=== PATIENT | male | born 1990 | race African-American/Black ===

== ENCOUNTER 2021-03-27 16:17 | Emergency (ER) | payer OTHER ==
[~2021-03-27] VITALS: Ht 170.2 cm; Wt 100.0 kg
[2021-03-27 16:22] VITALS: BP 143/67
--- NOTE | 2021-03-27 17:22 | PHYS DOC ---
Past Medical History Additional Past Medical Histor: SI Past Surgical History: Other Additional Past Surgical Histo: Finger amputation Smoking Status: Never Smoker Alcohol Use: None General Adult EDM: Chief Complaint: SUICDAL IDEATION HPI: HPI: Patient is a 30 year old inmate male from a local correctional facility presented to the ED today to be evaluated after swallowing a razor blade. Patient states he did this as a suicide attempt. He states currently has slight epigastric pain. He states after swallowing the blade he was tackled by correctional facility officers. He states he has a contusion on the forehead and bruising on the left wrist. Patient denies any loss of consciousness during the tackle. Patient is guarded with 2 correctional officers Review of Systems: Review of Systems: Constitutional: Denies fever or chills. [] Eyes: Denies change in visual acuity. [] HENT: Denies nasal congestion or sore throat. [] Respiratory: Reports swallowing a razor blade, denies denies cough or shortness of breath. [] Cardiovascular: Denies chest pain or edema. [] GI: Denies abdominal pain, nausea, vomiting, bloody stools or diarrhea. [] : Denies dysuria. [] Musculoskeletal: Denies back pain or joint pain. [] Integument: Reports left wrist bruising Neurologic: Reports forehead contusion. Denies headache, focal weakness or sensory changes. [] Psychiatric: Denies depression or anxiety. [] Heart Score: C/O Chest Pain: N/A Risk Factors: Risk Factors: DM, Current or recent (<one month) smoker, HTN, HLP, family history of CAD, obesity. Risk Scores: Score 0 - 3: 2.5% MACE over next 6 weeks - Discharge Home Score 4 - 6: 20.3% MACE over next 6 weeks - Admit for Clinical Observation Score 7 - 10: 72.7% MACE over next 6 weeks - Early Invasive Strategies Allergies: Allergies: Allergies Coded Allergies Type Severity Reaction Last Updated Verified No Known Drug Allergies 03/27/21 No Physical Exam: PE: Constitutional: Well developed, well nourished, no acute distress, non-toxic appearance. [] HENT: Normocephalic, atraumatic, bilateral external ears normal, oropharynx moist, no oral exudates, nose normal. Airways open, exam slightly difficult, patient not willing to open his mouth wide no bleeding or tenderness noted to the mouth Eyes: PERRLA, EOMI, conjunctiva normal, no discharge. [] Neck: Normal range of motion, no tenderness, supple, no stridor. [] Cardiovascular:Heart rate regular rhythm, no murmur [] Lungs & Thorax: Bilateral breath sounds clear to auscultation [] Abdomen: Bowel sounds normal, soft, no tenderness, no masses, no pulsatile masses. [] Skin: Left wrist with bruising. Back: No tenderness, no CVA tenderness. [] Extremities: No tenderness, no cyanosis, no clubbing, ROM intact, no edema. [] Neurologic: Small forehead contusion noted. Alert and oriented X 3, normal motor function, normal sensory function, no focal deficits noted. Cranial nerves II through XII intact. Psychologic: Flat affect Current Patient Data: Vital Signs: Vital Signs Date Time Temp Pulse Resp B/P (MAP) Pulse Ox O2 Delivery O2 Flow Rate FiO2 03/27/21 16:22 98.6 112 18 143/67 98 Room Air 98.6 EKG: EKG: [] Radiology/Procedures: Radiology/Procedures: []PROCEDURE: CT NECK CHEST ABD PELV WO CT NECK CHEST ABD PELV WO History: Foreign body ingestion. Technique: CT of the neck, chest, abdomen and pelvis were performed with intravenous contrast. Coronal and sagittal reconstructions were performed. Exposure: One or more of the following individualized dose reduction techniques were utilized for this examination: 1. Automated exposure control 2. Adjustment of the mA and/or kV according to patient size 3. Use of iterative reconstruction technique. Comparison: None Findings: Neck soft tissue: No radiopaque foreign body within the upper airway or upper esophagus. Rounded metallic foreign body within the left crusher muscle measures 0.5 cm. Unremarkable noncontrast appearance of the submandibular, parotid and thyroid glands. No pathologic lymphadenopathy. Symmetric appearance of the laryngeal structures. Normal appearance of the epiglottis. No tonsillar hypertrophy. Imaged intracranial contents and orbits are unremarkable. Imaged paranasal sinuses and mastoid air cells are clear. Chest: No radiopaque foreign body within the chest. Residual thymus within the anterior mediastinum. No pathologic lymphadenopathy. No consolidation or pleural effusion. No pneumothorax. Abdomen and pelvis: No pneumoperitoneum. No radiopaque foreign body in the abdomen or pelvis. Unremarkable noncontrast appearance of the liver, spleen, adrenal glands, pancreas and gallbladder. No hydronephrosis. Small nonobstructing left inferior renal calculus. Normal appearance of the urinary bladder. Normal appendix. No evidence of bowel obstruction. No pathologic lymphadenopathy. No ascites. Bones: Mild S-shaped curvature of the thoracolumbar spine. Small sclerotic lesion within the left ilium, likely bone island. Impression: Neck soft tissue CT: 1. Small rounded radiopaque foreign body within the left crusher muscle. 2. No radiopaque foreign body within the aerodigestive tract. Chest CT: 1. No radiopaque foreign body. Abdomen and pelvis CT: 1. No radiopaque foreign body. 2. Small nonobstructing left intrarenal calculus. No hydronephrosis. Electronically signed by: Oral Avery DO (03/27/2021 5:38 PM) [facility] DICTATED and SIGNED BY: ORAL AVERY DO DATE: 03/27/21 [id number] 0 Course & Med Decision Making: Course & Med Decision Making Pertinent Labs and Imaging studies reviewed. (See chart for details) This is a 30-year-old male patient presenting to the ED today from the local correctional facility to be evaluated after swallowing a razor blade. CT of the neck noted for a small rounded radiopaque foreign body within the left crusher muscle. CT of the abdomen and pelvis are negative for any acute findings, CT of the chest is negative. Spoke with Dr. Jiang, oromaxillary surgeon he stated sharp of this foreign object is not likely a razor blade considering its rounded. He requested we discharge patient. Of note patient is very rude and got into an argument with some of the nurses Dee Disclaimer: Dee Disclaimer: This electronic medical record was generated, in whole or in part, using a voice recognition dictation system. Departure Departure Impression: Primary Impression: Swallowed foreign body Qualified Codes: T18.9XXA - Foreign body of alimentary tract, part unspecified, initial encounter Additional Impressions: Suicidal behavior Qualified Codes: T14.91XA - Suicide attempt, initial encounter Head contusion Qualified Codes: S00.03XA - Contusion of scalp, initial encounter Disposition: HOME / SELF CARE / HOMELESS Condition: STABLE Referrals: NO PCP (PCP) MARLIN JIANG DMD follow up in one week Patient Instructions: Swallowed Foreign Body, Adult Additional Instructions: You were evaluated in the emergency room, we did a CT of your neck which was noted for a rounded metallic foreign object within your left crusher muscle, CT of your abdomen pelvis and chest were negative for any acute findings. This rounded metallic object is not consistent with a razor blade. Please follow-up with your primary care doctor and the provided oral surgeon TIMBO MONTES APRN Mar 27, 2021 17:22
--- NOTE | 2021-03-27 17:40 | RAD ---
CT NECK CHEST ABD PELV WO History: Foreign body ingestion. Technique: CT of the neck, chest, abdomen and pelvis were performed with intravenous contrast. Garcia l and sagittal reconstructions were performed. Exposure: One or more of the following individualized dose reduction techniques were utilized for thi s examination: 1. Automated exposure control 2. Adjustment of the mA and/or kV according to patient size 3. Use of iterative reconstruction technique. Comparison: None Findings: Neck soft tissue: No radiopaque foreign body within the upper airway or upper esophagus. Rounded metallic foreign body within the left contact centre supervisor muscle measures 0.5 cm. Unremarkable noncontrast appearance of the submandibular, parotid and thyroid glands. No pathologic l ymphadenopathy. Symmetric appearance of the laryngeal structures. Normal appearance of the epiglottis . No tonsillar hypertrophy. Imaged intracranial contents and orbits are unremarkable. Imaged paranasal sinuses and mastoid air ce lls are clear. Chest: No radiopaque foreign body within the chest. Residual thymus within the anterior mediastinum. No path ologic lymphadenopathy. No consolidation or pleural effusion. No pneumothorax. Abdomen and pelvis: No pneumoperitoneum. No radiopaque foreign body in the abdomen or pelvis. Unremarkable noncontrast appearance of the liver, spleen, adrenal glands, pancreas and gallbladder. N o hydronephrosis. Small nonobstructing left inferior renal calculus. Normal appearance of the urinary bladder. Normal appendix. No evidence of bowel obstruction. No pathologic lymphadenopathy. No ascites. Bones: Mild S-shaped curvature of the thoracolumbar spine. Small sclerotic lesion within the left markos um, likely bone island. Impression: Neck soft tissue CT: 1. Small rounded radiopaque foreign body within the left contact centre supervisor muscle. 2. No radiopaque foreign body within the aerodigestive tract. Chest CT: 1. No radiopaque foreign body. Abdomen and pelvis CT: 1. No radiopaque foreign body. 2. Small nonobstructing left intrarenal calculus. No hydronephrosis. Electronically signed by: Oral Cabrera DO (03/27/2021 5:38 PM) [facility] [place]
== END 2021-03-27 18:39 | disposition home or self-care (01) ==
LOC: ER 16:17 → EEVIPCON 16:17 → ER 18:39
DX: T18.9XXA Foreign body of alimentary tract, part unspecified, initial encounter (principal); T14.91XA Suicide attempt, initial encounter; S00.83XA Contusion of other part of head, initial encounter; R10.13 Epigastric pain; S60.212A Contusion of left wrist, initial encounter; X83.8XXA Intentional self-harm by other specified means, initial encounter; Y93.89 Activity, other specified; Y92.89 Other specified places as the place of occurrence of the external cause; Y99.8 Other external cause status
CPT/HCPCS: 70490; 71250; 74176; 99285-25